=== PATIENT | female | born 1995 | race Caucasian/White ===

== ENCOUNTER 2020-12-22 03:00 | Emergency (ER) | payer MEDICAID, OTHER ==
[~2020-12-22] VITALS: Ht 149.9 cm; Wt 63.5 kg
[2020-12-22 03:03] VITALS: BP 108/70
[2020-12-22] MEDS ORDERED: NACL 0.9% 1,000 ML IV ONE (03:10)
[2020-12-22 04:10] LABS: BARBITURATE, URINE NEGATIVE ng/ml (NEG <=200); BENZODIAZEPINE, URINE POSITIVE ng/mL (NEG <=200); CANNABINOID, URINE POSITIVE ng/mL (NEG <=50); COCAINE, URINE NEGATIVE ng/mL (NEG <=300); OPIATE, URINE POSITIVE ng/mL (NEG <=2000); PHENCYCLIDINE SCREEN,URINE NEGATIVE ng/mL (NEG <=25)
[2020-12-22 04:38] VITALS: BP 100/70
== END 2020-12-22 04:40 | disposition home or self-care (01) ==
LOC: MED 03:00
DX: F19.10 Other psychoactive substance abuse, uncomplicated (principal); F12.10 Cannabis abuse, uncomplicated; F14.10 Cocaine abuse, uncomplicated
CPT/HCPCS: 80305; 81025; 96360; 99283; J7030

== ENCOUNTER 2021-11-27 23:30 | Emergency (ER) | payer OTHER ==
[~2021-11-27] VITALS: Ht 149.9 cm; Wt 59.0 kg
[2021-11-27 23:42] VITALS: BP 123/82
--- NOTE | 2021-11-27 23:45 | NUR ---
PATIENT AMBUALTED TO LOBBY WITH STEADY GAIT. SEE COMPLETE ASSESSMENT FOR FURTHER DETAILS.
[2021-11-28] MEDS ORDERED: TOBR5SOL17 OP ×2 (00:27→01:44)
--- NOTE | 2021-11-28 00:39 | NUR ---
Patient discharged with v/s stable. Written and verbal after care instructions given and explained. Patient alert, oriented and verbalized understanding of instructions. Ambulatory with steady gait. All questions addressed prior to discharge. ID band removed. Patient advised to follow up with PMD. Rx of TOBRAMYCIN given. Patient educated on indication of medication including possible reaction and side effects. Opportunity to ask questions provided and answered.
[2021-11-28 00:41] VITALS: BP 123/82
== END 2021-11-28 00:39 | disposition home or self-care (01) ==
LOC: MED 23:30
DX: H10.33 Unspecified acute conjunctivitis, bilateral (principal); Z79.899 Other long term (current) drug therapy
CPT/HCPCS: 99283

== ENCOUNTER 2024-03-27 14:51 | Emergency (ER) | payer MEDICAID, OTHER ==
[~2024-03-27] VITALS: Ht 149.9 cm; Wt 77.7 kg
[~2024-03-27 14:51] MED LIST: TOBR5SOL38 OP
[2024-03-27 15:13] VITALS: BP 150/82; PULSE 84; RESP 24; TEMP 96.7; O2SAT 100
== END 2024-03-27 15:24 | disposition left against medical advice (07) ==
LOC: MED 14:51
DX: K59.00 Constipation, unspecified (principal); Z53.21 Procedure and treatment not carried out due to patient leaving prior to being seen by health care provider

== ENCOUNTER 2024-07-07 05:40 | Emergency (ER) | payer MEDICAID ==
[~2024-07-07] VITALS: Ht 149.9 cm; Wt 72.7 kg
[2024-07-07 05:43] VITALS: BP 145/84; PULSE 109; RESP 20; TEMP 98.2; O2SAT 99
[2024-07-07] MEDS ORDERED: CEPH-588 PO (06:19)
[2024-07-07 06:27] VITALS: BP 145/84; PULSE 109; RESP 20; TEMP 98.2; O2SAT 99
== END 2024-07-07 06:27 | disposition home or self-care (01) ==
LOC: MED 05:40
DX: L03.811 Cellulitis of head [any part, except face] (principal); Z79.899 Other long term (current) drug therapy
CPT/HCPCS: 99283